=== PATIENT | female | born 1970 | race Two or more races ===

== ENCOUNTER → 2018-08-20 | Day surgery (SDC) | payer OTHER ==
[~2018-08-20] MED LIST: CARDURA1 MG PO; COZAAR100 MG PO; LEVO-T50 MCG PO
== END | disposition home or self-care (01) ==
LOC: ADM 08-17 12:30 → CIR.AMB 08:50
DX: M77.12 Lateral epicondylitis, left elbow (principal)

== ENCOUNTER 2021-08-02 07:02 | Day surgery (SDC) | payer OTHER | END 2021-08-02 13:00 | disposition home or self-care (01) | LOC: CIR.AMB 07:02 | PROVIDERS: ATTEND Orthopaedic Surgery | DX: M77.11 Lateral epicondylitis, right elbow (principal); I10 Essential (primary) hypertension; Z86.16 Personal history of COVID-19; E03.9 Hypothyroidism, unspecified; G43.909 Migraine, unspecified, not intractable, without status migrainosus; M19.90 Unspecified osteoarthritis, unspecified site ==